=== PATIENT | male | born 1955 | race Caucasian/White ===

== ENCOUNTER 2019-08-22 13:41 | Emergency (ER) | payer BC ==
[~2019-08-22] VITALS: Ht 185.4 cm; Wt 105.0 kg
[2019-08-22 14:56] VITALS: BP 142/81
== END 2019-08-22 15:02 | disposition home or self-care (01) ==
LOC: ER 13:42
DX: M79.605 Pain in left leg (principal); R22.42 Localized swelling, mass and lump, left lower limb; Z88.5 Allergy status to narcotic agent
CPT/HCPCS: 73590; 93971; 99284